=== PATIENT | female | born 1965 | race Caucasian/White ===

== ENCOUNTER 2024-05-19 10:22 | Outpatient (CLI) | payer OTHER ==
[~2024-05-19 10:22] MED LIST: CARAFATE1 G; PROTONIX40 MG; REGLAN 10ML5 MG/ML
== END 2024-05-19 10:33 | disposition home or self-care (01) ==
LOC: RAD 10:22
PROVIDERS: ATTEND Orthopaedic Surgery
DX: M25.562 Pain in left knee (principal)

== ENCOUNTER 2024-06-23 07:36 | Outpatient (CLI) | payer OTHER | END 2024-06-23 07:43 | disposition home or self-care (01) | LOC: RAD 07:36 | PROVIDERS: ATTEND Orthopaedic Surgery | DX: Z76.89 Persons encountering health services in other specified circumstances (principal) ==

== ENCOUNTER 2024-12-10 13:20 | Outpatient (CLI) | payer OTHER | END 2024-12-10 13:28 | disposition home or self-care (01) | LOC: RAD 13:20 | PROVIDERS: ATTEND Orthopaedic Surgery | DX: M25.561 Pain in right knee (principal) ==